=== PATIENT | female | born 1980 | race Caucasian/White ===

== ENCOUNTER 2020-05-27 14:24 | Outpatient (CLI) | payer OTHER, SELFPAY ==
--- NOTE | 2020-05-27 10:30 | MM_ITS ---
WS: [id number] BILATERAL SCREENING DIGITAL MAMMOGRAM WITH CAD HISTORY: Wellness exam COMPARISON: None available. Bilateral CC and MLO views submitted. Computer aided detection analyzed. Breast composition: There are scattered areas of fibroglandular density. No suspicious masses, microc alcifications or architectural distortion. MM/[place] [id number] IMPRESSION: BI-RADS: 1-Negative FOLLOW UP: 1 Year Follow-up
== END 2020-05-27 14:25 | disposition home or self-care (01) ==
LOC: RADSHAW 14:27
PROVIDERS: PCP Family Medicine Adult Medicine; Visit Provider Family Medicine Adult Medicine
DX: Z12.31 Encounter for screening mammogram for malignant neoplasm of breast (principal)
CPT/HCPCS: 77067

== ENCOUNTER → 2021-01-06 07:14 | Outpatient (BNVA) | payer OTHER, SELFPAY | PROVIDERS: PCP Family Medicine Adult Medicine; Visit Provider Family Medicine Adult Medicine | DX: E66.01 Morbid (severe) obesity due to excess calories (principal); I10 Essential (primary) hypertension; R73.03 Prediabetes; Z13.6 Encounter for screening for cardiovascular disorders; Z68.41 Body mass index [BMI] 40.0-44.9, adult; B35.6 Tinea cruris; F41.9 Anxiety disorder, unspecified; F32.9 Major depressive disorder, single episode, unspecified | CPT/HCPCS: 80053; 80061; 83036; 84443; 85025 ==

== ENCOUNTER 2021-08-25 14:07 | Outpatient (CLI) | payer OTHER, SELFPAY ==
--- NOTE | 2021-08-25 14:15 | US_ITS ---
WS: [id number] ABDOMINAL ULTRASOUND LIMITED REASON FOR VISIT: Abd pain and vomiting after eating TECHNIQUE: Grayscale and Doppler ultrasound examination of the abdomen. FINDINGS: Pancreas: No mass, calculus, or ductal dilatation. Abdominal aorta and IVC: Normal Liver: Liver measures 14.0 cm in length. Homogeneously mildly increased echogenicity. No focal lesion s. Gallbladder: Within the bladder fossa curvilinear echogenicity seen with shadowing. This appearance p ersisted throughout the examination. The common bile duct measures 3 mm. Right kidney: Right kidney measures 11.4 cm x 6.0 cm x 4.3 cm. There is no mass, calculus, or hydrone phrosis. No ascites US/US gall bladder [id number] IMPRESSION: The findings in the gallbladder fossa are felt to represent a contracted thick- walled gallbladder with calculi. The liver echo texture is most commonly seen with mild fatty infiltration of th e liver.
== END 2021-08-25 14:08 | disposition home or self-care (01) ==
LOC: RAD 14:07
PROVIDERS: PCP Family Medicine Adult Medicine; Visit Provider Family Medicine Adult Medicine
DX: K80.20 Calculus of gallbladder without cholecystitis without obstruction (principal); R10.9 Unspecified abdominal pain
CPT/HCPCS: 76705

== ENCOUNTER → 2021-09-06 16:04 | Outpatient (BNVA) | payer OTHER, SELFPAY | PROVIDERS: PCP Family Medicine Adult Medicine; Visit Provider Obstetrics & Gynecology | DX: Z12.39 Encounter for other screening for malignant neoplasm of breast (principal); R61 Generalized hyperhidrosis | CPT/HCPCS: 83001; 84443 ==

== ENCOUNTER 2021-10-06 14:40 | Outpatient (CLI) | payer OTHER, SELFPAY ==
[2021-10-06 16:32] LABS: Free T4 Free Thyroxine 1.19 ng/dL (0.82-1.77); Thyroid Stimulating Hormone 0.19 uIU/mL (0.27-4.20)
[2021-10-07 09:56] LABS: T3 Total 104 ng/dL (76-181)
[2021-10-07 17:56] LABS: Thyroid Peroxidase Antobodies 6 IU/mL (<9)
== END 2021-10-06 14:41 | disposition home or self-care (01) ==
PROVIDERS: PCP Family Medicine Adult Medicine; Visit Provider Internal Medicine
DX: R79.89 Other specified abnormal findings of blood chemistry (principal); R73.03 Prediabetes
CPT/HCPCS: 83516; 84439; 84443; 84480; 86376

== ENCOUNTER 2021-10-19 07:50 | Outpatient (CLI) | payer OTHER, SELFPAY ==
--- NOTE | 2021-10-19 07:57 | MM_ITS ---
WS: [id number] BILATERAL SCREENING DIGITAL BREAST TOMOSYNTHESIS MAMMOGRAM WITH CAD HISTORY: Z12.39 - Encounter for other screening for malignant neoplasm. COMPARISON: 05/27/2020 Bilateral CC and MLO views with tomosynthesis and synthetic mammography submitted. Computer aided det ection analyzed. Breast composition: The breasts are heterogeneously dense, which may obscure small masses. No suspici ous masses, microcalcifications or architectural distortion. Scattered asymmetries within each breast . No persistent abnormality seen on the tomosynthesis. MM/[place] [id number] IMPRESSION: BI-RADS: 2-Benign FOLLOW UP: 1 Year Follow-up
== END 2021-10-19 07:51 | disposition home or self-care (01) ==
LOC: RAD 07:54
PROVIDERS: PCP Family Medicine Adult Medicine; Visit Provider Obstetrics & Gynecology
DX: Z12.39 Encounter for other screening for malignant neoplasm of breast (principal)
CPT/HCPCS: 77063; 77067

== ENCOUNTER 2021-10-26 20:15 | Emergency (ER) | payer OTHER, SELFPAY ==
[2021-10-26 20:38] VITALS: BP 212/115; PULSE 67; RESP 18; TEMP 36.8; O2SAT 97; BMI 37.5
--- NOTE | 2021-10-26 22:08 | ED_ITS ---
HPI - Abdominal Pain General: Chief Complaint: Abdominal Pain Stated Complaint: abd pain Time Seen by Provider: 10/26/21 22:08 History of Present Illness: 41-year-old female comes in today with complaints of right upper quadrant abdominal pain. Patient has a history of gallstones. P lindsay thinks that she might have exacerbation of her gallbladder disease. Patient appears mildly unwell and in moderate pain. Associated Symptoms: Reports nausea; Denies fever(s) and vomiting Review of Systems General: Reports: 10 or more systems reviewed and unremarkable except in HPI and below Const: Denies: fever(s) Card: Denies: chest pain Resp: Denies: dyspnea GI: Reports: abdominal pain and nausea; Denies: vomiting : Denies: difficulty voiding PFSH ED PFSH: Medical History Acute sinusitis Anxiety and depression Blood thyroid stimulating hormone (TSH) decreased compared with prior measurement Hypertension Medicare annual wellness visit, initial Morbid obesity with BMI of 40.0-44.9, adult Pain in abdomen on palpation Prediabetes Tinea cruris Surgical History H/O total hysterectomy Family History Mother Hypertension Diabetes Heart disease CAD (coronary artery disease) Hyperlipidemia Hyperthyroidism Grandmother Cervical cancer maternal, 60's Breast cancer, Onset Age: 80 paternal Father Hyperlipidemia Hypertension Denies family history of Colon cancer Ovarian cancer Clotting disorder Anesthesia complication Bleeding disorder Uterine cancer Social History Smoking and tobacco status: never smoked Alcohol intake: current Alcohol intake frequency: holidays/special occasions only Alcohol type: wine Physical Exam Const: COMMON NORMALS: alert HENMT: COMMON NORMALS: normocephalic HEAD & SCALP: normocephalic MOUTH: Normal oral and palatal mucosa present Resp: COMMON NORMALS: normal respiratory effort and clear to auscultation bilaterally AUSCULTATION: clear to auscultation bilaterally Cardio: COMMON NORMALS: regular rate RATE: regular rate GI: AUSCULTATION: Yes normoactive bowel sounds PALPATION: Yes Tenderness to palpation present (GI) Details: RUQ : COMMON NORMALS: Yes no CVA tenderness BLADDER/KIDNEY EXAM: Yes no CVA tenderness Back/Pelvis: COMMON NORMALS: no CVA tenderness Neuro: SENSORIUM/ORIENTATION: Yes alert Psych: COMMON NORMALS: cooperative Course Vital Signs: Vital signs: Vital Signs Temperature 98.3 F 10/26/21 20:38 Pulse Rate 67 10/26/21 20:38 Respiratory Rate 16 10/26/21 22:32 Blood Pressure 212/115 10/26/21 20:38 Pulse Oximetry 97 10/26/21 20:38 MDM - Abdominal Pain Medical Decision Making Patient comes in today with complaints of right upper quadrant abdominal pain with nausea. Patient has a history of gallstones. On exam abdomen soft with some tenderness in the right upper quadrant. Skin is warm and dry. Vital signs are normal. Patient is afebrile. Patient reports no fever. Differential diagnosis includes but not limited to cholecystitis, cholelithiasis, gastritis. Laboratory values noted a white count of 15,000, liver enzymes are normal, bilirubin is normal, ultrasound gallbladder noted no blocked bile duct with some possibly thickening of the gallbladder wall. Patient was given 4 mg of morphine and 15 mg Toradol with good control pain and discomfort. Reviewed exam with patient with recommendations for follow-up with general surgeon for further evaluation and treatment of gallbladder disease and gallbladder removal. Patie nt will monitor for fever return for fever or worsening pain or inability to hold fluids down. Patient was written for hydrocodone and Zofran. Patient reported understanding of care plan need for follow-up or return to the ER. Lab Data : 10/26/21 22:15 10/26/21 22:15 Labs/Radiology: Laboratory Results WBC 15.6 10^3/uL (4.0-10.0) H 10/26/21 22:15 RBC 5.40 10^6/uL (4.1-5.3) H 10/26/21 22:15 Hgb 11.9 g/dL (11.5-15.3) 10/26/21 22:15 Hct 38.4 % (37.0-47.0) 10/26/21 22:15 MCV 71.1 fl (81-99) L 10/26/21 22:15 MCH 22.0 pg (28.0-34.0) L 10/26/21 22:15 MCHC 31.0 g/dL (30.0-36.0) 10/26/21 22:15 RDW 20.4 % (12.1-15.1) H 10/26/21 22:15 Plt Count 449 10^3/cmm (130-400) H 10/26/21 22:15 MPV 11.1 fL (7.4-10.4) H 10/26/21 22:15 Neut % (Auto) 81.6 % 10/26/21 22:15 Lymph % (Auto) 13.5 % 10/26/21 22:15 Piatt % (Auto) 3.7 % 10/26/21 22:15 Eos % (Auto) 0.4 % 10/26/21 22:15 Baso % (Auto) 0.4 % 10/26/21 22:15 Neut # (Auto) 12.72 10^3/uL (1.8-7.7) H 10/26/21 22:15 Lymph # (Auto) 2.1 10^3/uL (0.8-4.8) 10/26/21 22:15 Piatt # (Auto) 0.6 10^3/uL (0.2-0.9) 10/26/21 22:15 Eos # (Auto) 0.1 10^3/uL (0.0-0.8) 10/26/21 22:15 Baso # (Auto) 0.1 10^3/uL (0.0-0.1) 10/26/21 22:15 Nucleated RBC % (auto) 0 % 10/26/21 22:15 Nucleated RBCs # 0.0 /100WBC 10/26/21 22:15 Sodium 137 mmol/L (136-145) 10/26/21 22:15 Potassium 3.4 mmol/L (3.5-5.1) L 10/26/21 22:15 Chloride 101 mmol/L (98-107) 10/26/21 22:15 Carbon Dioxide 23 mmol/L (22-29) 10/26/21 22:15 Anion Gap 16.4 (5-19) 10/26/21 22:15 BUN 7 mg/dL (6-20) 10/26/21 22:15 Creatinine 0.6 mg/dL (0.5-0.9) 10/26/21 22:15 GFR Calculation 110.2 mL/min (90-130) 10/26/21 22:15 Glucose 119 mg/dL (65-115) H 10/26/21 22:15 Calculated Osmolality 283 mOsm/kg (285-295) L 10/26/21 22:15 Calcium 8.9 mg/dL (8.5-10.5) 10/26/21 22:15 Total Bilirubin 0.3 mg/dL (0.15-1.2) 10/26/21 22:15 AST 18 U/L (0-32) 10/26/21 22:15 ALT 22 U/L (0-33) 10/26/21 22:15 Alkaline Phosphatase 108 IU/L (35-105) H 10/26/21 22:15 Total Protein 7.4 g/dL (6.6-8.7) 10/26/21 22:15 Albumin 4.3 g/dL (3.5-5.2) 10/26/21 22:15 Globulin 3.1 g/dL (1.3-4.6) 10/26/21 22:15 Lipase 40 U/L (13-60) 10/26/21 22:15 HCG, Qual Cancelled 10/26/21 22:15 Urine Color Yellow (Yellow) 10/26/21 22:06 Urine Appearance Clear (CLEAR) 10/26/21 22:06 Urine pH 7 (5-7) 10/26/21 22:06 Ur Specific [place] 1.010 (1.005-1.030) 10/26/21 22:06 Urine Protein Neg (Negative) 10/26/21 22:06 Urine Glucose (UA) Norm (Normal) 10/26/21 22:06 Urine Ketones Negative (Negative) 10/26/21 22:06 Urine Blood Neg (Negative) 10/26/21 22:06 Urine Nitrate Negative (Negative) 10/26/21 22:06 Urine Bilirubin Neg (Negative) 10/26/21 22:06 Urine Urobilinogen Norm mg/dL (Negative) 10/26/21 22:06 Ur Leukocyte Esterase Negative (Negative) 10/26/21 22:06 Urine HCG, Qual Negative (Negative) 10/26/21 22:06 Discharge Plan Discharge Patient Disposition: Home Clinical Impression: Gall bladder inflammation Condition: Stable Prescriptions: New hydrocodone-acetaminophen 5-325 mg tablet 1 tab PO Q6H PRN (Reason: pain) Qty: 10 0RF ondansetron 4 mg tablet,disintegrating 4 mg PO Q8H PRN (Reason: nausea and vomiting) Qty: 10 0RF No Action fluticasone propionate 50 mcg/actuation spray,suspension 1 spray intranasal BID Qty: 16 5RF Rx Instructions: administer into each nostril multivitamin Tablet 1 tab PO DAILY 0RF alprazolam 0.25 mg tablet 0.25 mg PO .q8 PRN (Reason: anxiety) Qty: 30 0RF clonidine HCl 0.1 mg tablet 0.1 mg PO BID 90 Days Qty: 180 1RF metoprolol ta-hydrochlorothiaz 50-25 mg tablet See Rx Instructions .ROUTE .COMPLEX Qty: 90 1RF Dose Instruction: TAKE 1 TABLET BY MOUTH EVERY DAY Rx Instructions: TAKE 1 TABLET BY MOUTH EVERY DAY methimazole 5 mg tablet 5 mg PO DAILY Qty: 90 3RF Rx Instructions: Take one tablet by mouth daily. sertraline 100 mg tablet See Rx Instructions .ROUTE .COMPLEX 90 Days Qty: 90 0RF Dose Instruction: TAKE 1 TABLET BY MOUTH DAILY Rx Instructions: TAKE 1 TABLET BY MOUTH DAILY Discharge Orders: Discharge ED (Routine); Ordered 10/27/21 Ordered By: Zachary Jones Referrals: Damon Carnes MD [Primary Care Provider] - Discharge Diet: Advance as tolerated Activity Restrictions/Additional Instructions: Home and rest. Clear liquid diet until pain resolves. Drink plenty of water. Follow-up with primary care as needed. Case management will contact you regarding general surgery follow-up. Return to ER for high fever greater than 100.4, inability to hold fluids down, or new concerns. Coding Level of Care Code ED Order Fulfillment Specialist for Bibiana Carmona
[2021-10-26 22:13] LABS: Add Urine Microscopic? NO; Charge for UA Resulting for Rev
[2021-10-26 22:24] LABS: Basophils # 0.1 10^3/uL (0.0-0.1); Basophils % 0.4 %; Eosinophils # 0.1 10^3/uL (0.0-0.8); Eosinophils % 0.4 %; Hematocrit 38.4 % (37.0-47.0); Hemoglobin 11.9 g/dL (11.5-15.3); Lymphocytes # 2.1 10^3/uL (0.8-4.8); Lymphocytes % 13.5 %; Mean Corpuscular Volume 71.1 fl (81-99); Mean Platelet Volume 11.1 fL (7.4-10.4); Monocytes # 0.6 10^3/uL (0.2-0.9); Monocytes % 3.7 %; Neutrophils # 12.72 10^3/uL (1.8-7.7); Neutrophils % 81.6 %; Nucleated Red Blood Cells % 0 %; Platelet Count 449 10^3/cmm (130-400); Red Cell Distribution Width 20.4 % (12.1-15.1); White Blood Count 15.6 10^3/uL (4.0-10.0)
[2021-10-26 22:27] LABS: Bilirubin Urine Neg (Negative); Blood Urine Neg (Negative); Glucose Urine UA Norm (Normal); Ketones Urine Negative (Negative); Leukocyte Esterase Urine Negative (Negative); Nitrate Urine Negative (Negative); Protein Urine Neg (Negative); Urine Appearance Clear (CLEAR); Urine Color Yellow (Yellow); Urobilinogen Urine Norm (Negative); pH Urine 7 (5-7)
[2021-10-26] MEDS: ketorolac 30 mg/mL INJ 15 MG IVP (22:27)
[2021-10-26] MEDS: sodium chloride 0.9% 1,000 ML 999 ML IV (22:27)
[2021-10-26] MEDS: ondansetron 2 mg/ML SDV 2 mL 4 MG IVP (22:30)
[2021-10-26 22:32] VITALS: RESP 16
[2021-10-26] MEDS: morphine 4 mg/mL SDV 1 mL IVP (22:32)
[2021-10-26 22:43] LABS: Alanine Aminotransferase 22 U/L (0-33); Albumin Level 4.3 g/dL (3.5-5.2); Alkaline Phosphatase 108 IU/L (35-105); Anion Gap 16.4 (5-19); Aspartate Amino Transferase 18 U/L (0-32); Blood Urea Nitrogen 7 mg/dL (6-20); Calcium 8.9 mg/dL (8.5-10.5); Carbon Dioxide 23 mmol/L (22-29); Chloride 101 mmol/L (98-107); Globulin 3.1 g/dL (1.3-4.6); Glomerular Filtration Rate 110.2 mL/min (90-130); Glucose 119 mg/dL (65-115); Lipase 40 U/L (13-60); Osmolality Calculated 283 mOsm/kg (285-295); Potassium 3.4 mmol/L (3.5-5.1); Sodium 137 mmol/L (136-145); Total Bilirubin 0.3 mg/dL (0.15-1.2); Total Protein 7.4 g/dL (6.6-8.7)
--- NOTE | 2021-10-27 00:40 | USR_ITS ---
PROCEDURE INFORMATION: Exam: US Abdomen, Limited; Right Upper Quadrant Exam date and time: 10/27/2021 12:41 AM Age: 41 years old Clinical indication: Abdominal pain; Acute; Additional info: Ruq pain, history of stones TECHNIQUE: Imaging protocol: US abdomen. Real time ultrasound with image documentation. Limited exam focused on the right upper quadrant. COMPARISON: US gall bladder [id number] 08/25/2021 2:34 PM FINDINGS: Liver: Unremarkable. No change from prior. Gallbladder: Mild degree of cholelithiasis. Thick-walled appearance of the gallbladder without pericholecystic fluid. Gallbladder wall thickness 4.1 mm. Biliary ducts: Normal. No stones. No dilation. Pancreas: Visualized pancreas is unremarkable. Right kidney: Normal. No mass. No hydronephrosis. US/US gall bladder [id number] IMPRESSION: Thickened gallbladder wall and cholelithiasis. Cannot exclude cholecystitis. Correlation with HIDA scan may be of value.
[2021-10-27 01:37] VITALS: BP 141/89; PULSE 70; RESP 16; O2SAT 97
--- NOTE | 2021-10-27 14:35 | DCPLANNER ---
Addendum entered by Johanna Tate 11/04/21 16:11: Patient had a follow up appointment scheduled for 10.28.[address] Prajapati at general surgery - patient did attend appointment. Original Note: manager diesel had message to schedule a follow up appointment for patient with general surgery. manager diesel sent patients information to the front office staff at general surgery. Patients information will be printed and reviewed. Clinic will call patient with appointment information.
== END 2021-10-27 01:39 | disposition home or self-care (01) ==
PROVIDERS: Emergency Medicine; Emergency Provider Nurse Practitioner Family; PCP Family Medicine Adult Medicine
DX: K81.9 Cholecystitis, unspecified (principal)
CPT/HCPCS: 76705; 80053; 81003; 81025; 83690; 85025; 96361; 96374; 96375; 99284; J1885; J2270; J2405; J7030

== ENCOUNTER 2021-11-29 16:08 | Outpatient (CLI) | payer OTHER, SELFPAY ==
[2021-11-29 17:15] LABS: Thyroid Stimulating Hormone 1.42 uIU/mL (0.27-4.20)
[2021-12-01 10:33] LABS: T3 Total 71 ng/dL (76-181)
== END 2021-11-29 16:09 | disposition home or self-care (01) ==
PROVIDERS: PCP Family Medicine Adult Medicine; Visit Provider Internal Medicine
DX: R79.89 Other specified abnormal findings of blood chemistry (principal)
CPT/HCPCS: 36415; 84439; 84443; 84480

== ENCOUNTER 2021-12-20 11:19 | Day surgery (SDC) | payer OTHER, SELFPAY ==
[2021-12-17 13:13] VITALS: BMI 37.9
[2021-12-20] VITALS (9 sets, daily range): BP systolic 114–166; BP diastolic 70–101; PULSE 56–67; RESP 14–18; TEMP 36.7–37; O2SAT 93–100
--- NOTE | 2021-12-20 12:11 | P.ANESASSM_ITS ---
Pre-Anesthetic Assessment Height/Weight: Height 1.6 m Weight 97.069 kg Temp Pulse Resp BP Pulse Ox 98.1 F 60 18 166/101 100 12/20/21 11:47 12/20/21 11:47 12/20/21 11:47 12/20/21 11:47 12/20/21 11:47 Preop Diagnosis: Cholelithiasis with chronic cholecystitis Operation Date: 12/20/21 13:00 Proposed Procedures p Laparoscopic Cholecystectomy 74277,K80.10(Not Applicable) - Guanaco Prajapati DO Familial anesthetic complications: none Was Beta [place] taken within 24 hours: Yes Was Clonidine taken within 24 hours: Yes Last intake: Intake Last Liquid Date 12/19/21 Last Liquid Time 22:00 Last Solid Date 12/19/21 Last Solid Time 20:00 Social No alcohol and No tobacco Exam alert, oriented x 3, clear to auscultation bilaterally and regular rate & rhythm Airway Submandibular: within normal limits Cervical ROM: within normal limits Mallampati: Class II Dentition: full Pulmonary None reported CV/HEM Hypertension None reported Hepatic None reported GI Symptomatic cholelithiasis Metabolic Thyroid Disease (Subclinical hyperthyroidism denies diarrhea, flushing, diaphoresis, palpitations, headache since starting methimazole ) From Note from Doctor Carl December 07, 2021 TSH 1.42, free T4 1.1, total T3 71, blood pressure normal 127 x 87 pulse normal at 65.? Patient has been taking 5 mg methimazole daily Antibodies for Julio Cesar's and Graves' were negative Patient has less fatigue fatigue Plan Radioactive iodine thyroid uptake scan to check for hot nodule antibodies are negative Continue 5 mg methimazole daily Labs before next visit [facility] None reported Neuropsych Anxiety and Depression Anesthetic Plan ASA status: 3 (41 year old female w/ symptomatic cholelithiasis, subclinical hyperthyroidism well controlled on methimazole, htn, obesity) Anesthesia: Anesthesia Evaluation and General Other: We discussed risk and benefits of general anesthesia including PONV, sore throat (sometimes severe), corneal abrasion, positioning and peripheral nerve injuries, life threatening allergic reaction, post operative ICU admission requiring prolonged intubation, aspiration, stroke, heart attack, , and rare incidences of recall. Patient consents to proceed with general anesthesia. Risk of > 500 ml blood loss (7ml/kg in children): No Medications/Allergies Home Medications Medication Instructions Recorded Confirmed Last Taken Type clonidine HCl 0.1 mg tablet 0.1 mg PO BID 90 Days #180 tab 04/05/21 12/20/21 12/20/21 Rx fluticasone propionate 50 1 spray INTRANASAL BID #16 g 05/12/21 12/20/21 12/19/21 Rx mcg/actuation nasal spray,suspension methimazole 5 mg tablet 5 mg PO DAILY #90 tab 10/07/21 12/20/21 12/20/21 Rx metoprolol tartrate 50 1 tab PO DAILY 12/17/21 12/20/21 12/20/21 History mg-hydrochlorothiazide 25 mg tablet sertraline 100 mg tablet 1 mg PO DAILY 12/17/21 12/17/21 Unknown History Allergies Allergy/AdvReac Type Severity Reaction Status Date / Time cephalexin [From Keflex] Allergy Severe ALGY-Difficulty Verified 12/17/21 13:08 Breathing Penicillins Allergy Severe ALGY-Difficulty Verified 12/17/21 13:08 Breathing azithromycin Allergy Intermediate ALGY-Hives Verified 12/17/21 13:08 FORMERLY [facility], [facility] Anesthesia Medical History Acute sinusitis Anxiety and depression Blood thyroid stimulating hormone (TSH) decreased compared with prior measurement Cholelithiasis with chronic cholecystitis Hypertension Medicare annual wellness visit, initial Morbid obesity with BMI of 40.0-44.9, adult Pain in abdomen on palpation Prediabetes Tinea cruris Surgical History H/O total hysterectomy Family History Mother Hypertension Diabetes Heart disease CAD (coronary artery disease) Hyperlipidemia Hyperthyroidism Grandmother Cervical cancer maternal, 60's Breast cancer, Onset Age: 80 paternal Father Hyperlipidemia Hypertension Denies family history of Colon cancer Ovarian cancer Clotting disorder Anesthesia complication Bleeding disorder Uterine cancer Social History Smoking and tobacco status: never smoked Alcohol intake: current Alcohol intake frequency: holidays/special occasions only Alcohol type: wine Data Anesthesia Cardiac Studies: No Data to Display
[2021-12-20] MEDS: sodium chloride 0.9% 1,000 ML 30 ML IV (12:15)
[2021-12-20] MEDS: vancomycin 1,000 MG in sodium chloride 0.9% 250 ML 250 MG IV (12:45)
--- NOTE | 2021-12-20 13:22 | W.PM.OPSUD ---
Surgery/Procedure H&P Update DATE OF PROCEDURE: December 20, 2021 DATE H&P PERFORMED: 12/06/21 CHANGES TO PREVIOUS DOCUMENTATION: none PREOP DIAGNOSIS: Cholelithiasis with chronic cholecystitis PLANNED PROCEDURE: Operation Date: 12/20/21 13:00 Proposed Procedures p Laparoscopic Cholecystectomy 00646,K80.10(Not Applicable) - Guanaco Prajapati DO
--- NOTE | 2021-12-20 14:09 | P.OP_ITS ---
Operative Report Date of procedure: December 20, 2021 Pre-op diagnosis: Preop Diagnosis Cholelithiasis with chronic cholecystitis Post-op diagnosis: same Procedure done: Laparoscopic cholecystectomy Specimens removed/disposition: Gallbladder Surgeon: Dr. Guanaco Prajapati DO Estimated blood loss (mL): 30 Complications: None apparent Brief History: Patient with chronic cholecystitis. Cholecystectomy was indicated. The risks and benefits were explained and documented. Procedure: Patient was wheeled into the operative room and placed on the OR table in a supine position. Abdomen was inspected prepped and draped in usual sterile fashion. Time-out was performed and all present were in agreement. A 15 blade scalp was used to make a stab incision in the left upper quadrant and intra- abdominal insufflation was achieved using a Veress needle. After localizing the tissue incisions were made and a 5 millimeter trocar was placed into the umbilicus as well as 2 in the right upper quadrant. A 12 millimeter trocar was placed in the epigastrium. Gallbladder was grasped and elevated. The triangle of Calot was carefully dissected using blunt dissection and electrocautery until the triangle of Calot clearly identified. The cystic duct was clipped prox imally and double clipped distally. The duct was then ligated proximally. The cystic artery was doubly clipped and ligated. The gallbladder was then removed from the liver bed using electrocautery. The gallbladder was removed from the abdomen using an Endo-Catch bag through the epigastric incision. The liver bed was inspected and no bleeding was seen. The abdomen was irrigated and suctioned. All ports removed. Skin was washed and dried. Incisions were closed with 3-0 and 4-O Vicryl in a subcuticular interrupted fashion. Skin glue was applied. Patient tolerated the procedure well.
--- NOTE | 2021-12-20 14:29 | SUR.PHASEI ---
1422 RECIEVED PT TO PACU 5 PT AWAKES TO VOICE, DENIES PAIN AND NAUSEA VERBALLY, GOOD RESP EFFORT, PT ON RA PER DR PAZ, SATS 95%, IV TO RT AC #20 WITH NS 5ML UP AT KVO RATE. BILAT SCDS ON ABDOMEN SOFT WITH 4 SITES WITH SKIN GLUE D/I TO ABDOMEN, MONITOR SR WITH NO ECTOPY NOTED, PT ID LT WRIST , PT ID'D WITH 2 IDENTIFIERS.
[2021-12-20] MEDS: HYDROcodone-acetaminophen 5-325 mg Tablet 1 TAB PO (15:13)
--- NOTE | 2021-12-20 15:32 | ANE.PACU2 ---
Inpatient post-anesthesia follow up: Airway intact: Yes Vital signs: Temperature 98.0 F Pulse Rate 59 Respiratory Rate 18 Blood Pressure 139/80 Pulse Oximetry 98 Oxygen Delivery Me thod Room Air Oxygen Flow Rate Fraction of Inspir ed Oxygen Hydration adequate: Yes Nausea and vomiting: No Pain level: 4 Mental status: Baseline
== END 2021-12-20 15:27 | disposition home or self-care (01) ==
PROVIDERS: PCP Family Medicine Adult Medicine; Visit Provider Surgery
PROC: 0FT44ZZ Resection of Gallbladder, Percutaneous Endoscopic Approach (ICD-10-PCS; CPT 47562; principal; 2021-12-20 12:50)
DX: K81.1 Chronic cholecystitis (principal); I10 Essential (primary) hypertension; E66.01 Morbid (severe) obesity due to excess calories; Z68.37 Body mass index [BMI] 37.0-37.9, adult
CPT/HCPCS: 47562; 88304; J1100; J2250; J2405; J2704; J3010; J3370; J3490; J7030; J7050

== ENCOUNTER 2022-01-18 08:48 | Outpatient (CLI) | payer OTHER, SELFPAY ==
--- NOTE | 2022-01-17 08:43 | NM_ITS ---
WS: [id number] NUCLEAR MEDICINE THYROID UPTAKE AND SCAN HISTORY: Checking for nodules and changes. COMPARISON: None available. Radionucleotide: 130 uCi Iodine-123 sodium iodide capsule. Oral ingestion. Imaging performed at 24 hours post ingestion of capsule. Marker placed over the chin and suprasternal notch. Homogeneous symmetric distribution throughout the thyroid gland. The RIGHT thyroid lobe appears sligh tly smaller than the LEFT. No area of focal photopenia or increased uptake to suggest a hypo or hyper functioning nodule. Gland measures approximate 5 cm in length which is normal. Thyroid uptake at 24 hours: 53.63%. (Normal uptake at 24 hours 10-30%). NM/NM thyroid uptake multi [id number] IMPRESSION: 1. Increased thyroid uptake, consistent with hyperthyroidism. 2. Normal size gland with the LEFT lobe being slightly larger than the RIGHT.
== END 2022-01-18 08:49 | disposition home or self-care (01) ==
PROVIDERS: PCP Family Medicine Adult Medicine; Visit Provider Internal Medicine
DX: E05.90 Thyrotoxicosis, unspecified without thyrotoxic crisis or storm (principal); F32.9 Major depressive disorder, single episode, unspecified; F41.9 Anxiety disorder, unspecified; I10 Essential (primary) hypertension
CPT/HCPCS: 78014; A9516

== ENCOUNTER → 2022-01-31 09:27 | Outpatient (BNVA) | payer OTHER, SELFPAY | PROVIDERS: PCP Family Medicine Adult Medicine; Visit Provider Internal Medicine | DX: E05.90 Thyrotoxicosis, unspecified without thyrotoxic crisis or storm (principal) | CPT/HCPCS: 36415; 84439; 84443; 84480 ==

== ENCOUNTER 2022-03-25 10:21 | Outpatient (CLI) | payer OTHER, SELFPAY ==
[2022-03-25 11:28] LABS: Free T4 Free Thyroxine 1.07 ng/dL (0.82-1.77); Thyroid Stimulating Hormone 2.02 uIU/mL (0.27-4.20)
[2022-03-26 07:37] LABS: T3 Total 97 ng/dL (76-181)
== END 2022-03-25 10:22 | disposition home or self-care (01) ==
PROVIDERS: PCP Family Medicine Adult Medicine; Visit Provider Internal Medicine
DX: E05.90 Thyrotoxicosis, unspecified without thyrotoxic crisis or storm (principal)
CPT/HCPCS: 36415; 84439; 84443; 84480

== ENCOUNTER 2022-03-30 07:59 | Outpatient (CLI) | payer OTHER, SELFPAY ==
--- NOTE | 2022-03-30 08:13 | XR_ITS ---
WS: [id number] Right shoulder, 3 views, 03/30/2022 Clinical Data: Rt shoulder pain Comparison: None. Findings: No fractures or dislocations are seen. The AC joint is normal. The adjacent right clavicle, right sca pula and ribs are normal. The soft tissues are unremarkable. XR/XR shoulder RT min 2V* [id number] Impression: Negative right shoulder.
== END 2022-03-30 08:00 | disposition home or self-care (01) ==
PROVIDERS: PCP Family Medicine Adult Medicine; Visit Provider Family Medicine Adult Medicine
DX: M25.511 Pain in right shoulder (principal); G89.29 Other chronic pain
CPT/HCPCS: 73030

== ENCOUNTER → 2022-09-09 16:07 | Outpatient (BNVA) | payer OTHER, SELFPAY | PROVIDERS: PCP Family Medicine Adult Medicine; Visit Provider Obstetrics & Gynecology | DX: Z01.419 Encounter for gynecological examination (general) (routine) without abnormal findings (principal); Z12.39 Encounter for other screening for malignant neoplasm of breast; Z79.899 Other long term (current) drug therapy | CPT/HCPCS: 83001; 84443 ==

== ENCOUNTER 2022-09-26 16:56 | Outpatient (CLI) | payer OTHER, SELFPAY ==
[2022-09-26 21:14] LABS: Free T4 Free Thyroxine 1.05 ng/dL (0.82-1.77); Thyroid Stimulating Hormone 6.58 uIU/mL (0.27-4.20)
[2022-09-29 05:24] LABS: T3 Total 110 ng/dL (76-181)
== END 2022-09-26 16:57 | disposition home or self-care (01) ==
LOC: LAB 16:59
PROVIDERS: PCP Family Medicine Adult Medicine; Visit Provider Internal Medicine
DX: E05.90 Thyrotoxicosis, unspecified without thyrotoxic crisis or storm (principal)
CPT/HCPCS: 84439; 84443; 84480

== ENCOUNTER 2022-10-24 12:56 | Outpatient (CLI) | payer OTHER, SELFPAY ==
--- NOTE | 2022-10-24 13:14 | MM_ITS ---
WS: [id number] BILATERAL 3D TOMOSYNTHESIS DIGITAL SCREENING MAMMOGRAPHY WITH CAD CLINICAL INFORMATION: Z12.39 - Encounter for other screening for malignant neop... HISTORY: Screening mammogram. No current complaints. RIGHT axillary lymph node per provider. This is not included on the mammogram. COMPARISON: 2021 TECHNIQUE: Bilateral CC and MLO views. FINDINGS: The breasts are composed of heterogeneous fibroglandular density tissue, which can limit the detectio n of small underlying mass lesions. No suspicious mass, asymmetry, calcifications, or architectural d istortion. No evidence of malignancy. MM/[place] [id number] IMPRESSION: BI-RADS: 1-Negative FOLLOW UP: 1 Year Follow-up Recommend return to annual screening mammography. Reported possible RIGHT axillary lymph node per patient. This is too far latera l and not included on the mammogram. If continued concern ultrasound of the axi lla could be obtained.
== END 2022-10-24 12:57 | disposition home or self-care (01) ==
PROVIDERS: PCP Family Medicine Adult Medicine; Visit Provider Obstetrics & Gynecology
DX: Z12.39 Encounter for other screening for malignant neoplasm of breast (principal)
CPT/HCPCS: 77063; 77067

== ENCOUNTER 2022-11-09 08:46 | Outpatient (CLI) | payer OTHER, SELFPAY ==
[2022-11-09 09:40] LABS: Thyroid Stimulating Hormone 0.52 uIU/mL (0.27-4.20)
[2022-11-09 14:21] LABS: Free T4 Free Thyroxine 1.14 ng/dL (0.82-1.77)
[2022-11-11 02:35] LABS: T3 Total 124 ng/dL (76-181)
== END 2022-11-09 08:47 | disposition home or self-care (01) ==
PROVIDERS: PCP Family Medicine Adult Medicine; Visit Provider Internal Medicine
DX: E05.90 Thyrotoxicosis, unspecified without thyrotoxic crisis or storm (principal); F32.9 Major depressive disorder, single episode, unspecified; F41.9 Anxiety disorder, unspecified; I10 Essential (primary) hypertension; R23.2 Flushing
CPT/HCPCS: 36415; 84439; 84443; 84480

== ENCOUNTER 2023-01-09 13:03 | Outpatient (CLI) | payer OTHER, SELFPAY ==
[2023-01-09 14:10] LABS: Free T4 Free Thyroxine 1.24 ng/dL (0.82-1.77)
[2023-01-10 11:02] LABS: T3 Total 106 ng/dL (76-181)
== END 2023-01-09 13:04 | disposition home or self-care (01) ==
PROVIDERS: PCP Family Medicine Adult Medicine; Visit Provider Internal Medicine
DX: E05.90 Thyrotoxicosis, unspecified without thyrotoxic crisis or storm (principal)
CPT/HCPCS: 36415; 84439; 84443; 84480

== ENCOUNTER 2023-10-26 08:53 | Outpatient (CLI) | payer OTHER, SELFPAY ==
--- NOTE | 2023-10-26 09:00 | MM_ITS ---
WS: [id number] Bilateral screening 3D tomosynthesis digital mammogram, 10/26/2023 Clinical Data: Z12.31 - Encounter for screening mammogram for malignant ... Comparison: 10/24/2022, 10/19/2021, 05/27/2020. Findings: The breast parenchymal pattern shows heterogeneous density. No spiculated masses or clustered calcifi cations are seen. There are no secondary signs of carcinoma. MM/[place] [id number] Impression: 1. Negative bilateral mammogram unchanged. 2. Recommend annual screening mammograms. BIRADS: 1-Negative FOLLOW UP: 1 Year Follow-up The CAD mechanical car checker was used.
== END 2023-10-26 08:54 | disposition home or self-care (01) ==
LOC: RAD 08:54
PROVIDERS: PCP Family Medicine Adult Medicine; Visit Provider Obstetrics & Gynecology
DX: Z12.31 Encounter for screening mammogram for malignant neoplasm of breast (principal)
CPT/HCPCS: 77063; 77067

== ENCOUNTER 2024-08-06 08:02 | Outpatient (CLI) | payer OTHER, SELFPAY ==
[2024-08-06 08:43] LABS: Free T4 Free Thyroxine 1.17 ng/dL (0.82-1.77)
[2024-08-07 07:59] LABS: T3 Total 91 ng/dL (76-181)
== END 2024-08-06 08:03 | disposition home or self-care (01) ==
PROVIDERS: PCP Family Medicine Adult Medicine; Visit Provider Internal Medicine
DX: E05.90 Thyrotoxicosis, unspecified without thyrotoxic crisis or storm (principal)
CPT/HCPCS: 36415; 84439; 84443; 84480

== ENCOUNTER → 2024-09-02 10:49 | Outpatient (BNVA) | payer OTHER, SELFPAY | PROVIDERS: PCP Family Medicine Adult Medicine; Visit Provider Family Medicine | DX: Z91.89 Other specified personal risk factors, not elsewhere classified (principal); R73.03 Prediabetes | CPT/HCPCS: 80053; 80061; 83036; 85025 ==

== ENCOUNTER 2024-12-12 08:45 | Outpatient (CLI) | payer OTHER, SELFPAY ==
--- NOTE | 2024-12-12 09:00 | MM_ITS ---
WS: [id number] SCREENING DIGITAL BREAST TOMOSYNTHESIS MAMMOGRAM WITH CAD HISTORY: Z12.31 - Encounter for screening mammogram for malignant ... COMPARISON: 10/26/2023, 10/24/2022, 10/19/2021 Bilateral CC and MLO with tomosynthesis and synthetic mammography submitted. Computer aided detection analyzed. Breast composition: There are scattered areas of fibroglandular density. Increasing asymmetry upper outer quadrant LEFT breast at middle depth. This may be due to poor compression. Recommend additional imaging. There are additional benign calcifications. MM/MM [facility] tomosynthesis [id number] IMPRESSION: BI-RADS: 0 - Incomplete: Need additional imaging evaluation. FOLLOW UP: Need Additional Imaging LEFT breast: Spot compression views (CC and MLO). True ML. Ultrasound to follow if abnormality persists.
== END 2024-12-12 08:46 | disposition home or self-care (01) ==
LOC: RAD 08:45
PROVIDERS: PCP Family Medicine; Visit Provider Nurse Practitioner Women's Health
DX: Z12.31 Encounter for screening mammogram for malignant neoplasm of breast (principal); R92.323 Mammographic fibroglandular density, bilateral breasts; N63.21 Unspecified lump in the left breast, upper outer quadrant; R92.1 Mammographic calcification found on diagnostic imaging of breast
CPT/HCPCS: 77063; 77067

== ENCOUNTER 2024-12-24 07:46 | Outpatient (CLI) | payer OTHER, SELFPAY ==
--- NOTE | 2024-12-24 08:00 | MM_ITS ---
WS: [email or web address] ADDITIONAL VIEWS LEFT MAMMOGRAM WITH DIGITAL BREAST TOMOSYNTHESIS. LEFT breast ultrasound, limited. HISTORY: Additional imaging after screening mammogram upper outer quadrant LEFT breast. COMPARISON: 12/12/2024, 10/26/2023 Spot compression views LEFT breast in CC, MLO projections and true ML submitted with digital breast tomosynthesis and SM. Breast composition: There are scattered areas of fibroglandular density. Asymmetry persists in the upper outer quadrant of the LEFT breast at a middle depth. There is no mass or suspicious grouping of calcifications. No distortion. Ultrasound to follow. LEFT breast ultrasound, limited. No mass or distortion identified in the LEFT breast upper outer quadrant. Normal appearance of the fibroglandular tissue. Dense fibroglandular changes. MM/MM diag LT tomosynthesis [id number] IMPRESSION: BI-RADS: 2 - Benign. FOLLOW UP: 1 Year Follow-up No persistent abnormality in the upper outer quadrant of the LEFT breast or mas s identified. Normal asymmetric fibroglandular breast tissue.
--- NOTE | 2024-12-24 08:30 | US_ITS ---
WS: [id number] ADDITIONAL VIEWS LEFT MAMMOGRAM WITH DIGITAL BREAST TOMOSYNTHESIS. LEFT breast ultrasound, limited. HISTORY: Additional imaging after screening mammogram upper outer quadrant LEFT breast. COMPARISON: 12/12/2024, 10/26/2023 Spot compression views LEFT breast in CC, MLO projections and true ML submitted with digital breast tomosynthesis and SM. Breast composition: There are scattered areas of fibroglandular density. Asymmetry persists in the upper outer quadrant of the LEFT breast at a middle depth. There is no mass or suspicious grouping of calcifications. No distortion. Ultrasound to follow. LEFT breast ultrasound, limited. No mass or distortion identified in the LEFT breast upper outer quadrant. Normal appearance of the fibroglandular tissue. Dense fibroglandular changes. US/US breast LT limited* [id number] IMPRESSION: BI-RADS: 2 - Benign. FOLLOW UP: 1 Year Follow-up No persistent abnormality in the upper outer quadrant of the LEFT breast or mas s identified. Normal asymmetric fibroglandular breast tissue.
== END 2024-12-24 07:47 | disposition home or self-care (01) ==
PROVIDERS: PCP Family Medicine; Visit Provider Nurse Practitioner Women's Health
DX: R92.8 Other abnormal and inconclusive findings on diagnostic imaging of breast (principal)
CPT/HCPCS: 76642; 77061; G0279

== ENCOUNTER 2025-05-22 08:43 | Outpatient (CLI) | payer SELFPAY ==
[2025-05-22 10:17] LABS: Thyroid Stimulating Hormone 0.22 uIU/mL (0.27-4.20)
== END 2025-05-22 08:44 | disposition home or self-care (01) ==
LOC: LAB 08:44
PROVIDERS: PCP Family Medicine; Visit Provider Dermatology
DX: Z01.89 Encounter for other specified special examinations (principal)
CPT/HCPCS: 36415

== ENCOUNTER 2025-05-28 12:17 | Outpatient (CLI) | payer OTHER, SELFPAY ==
[2025-05-28 13:56] LABS: Free T4 Free Thyroxine 1.15 ng/dL (0.82-1.77); Thyroid Stimulating Hormone 0.35 uIU/mL (0.27-4.20)
== END 2025-05-28 12:18 | disposition home or self-care (01) ==
LOC: LAB 12:20
PROVIDERS: PCP Family Medicine; Visit Provider Internal Medicine
DX: E05.90 Thyrotoxicosis, unspecified without thyrotoxic crisis or storm (principal)
CPT/HCPCS: 36415; 84439; 84443; 84481